=== PATIENT | male | born 1990 | race Caucasian/White ===

== ENCOUNTER 2021-04-01 09:06 | Emergency (ER) | payer OTHER ==
[2021-04-01] MEDS ORDERED: Kenalog-40 IM ONE (09:28)
--- NOTE | 2021-04-01 09:38 | ERPHSYRPT ---
- History of Present Illness Time Seen by Provider: 04/01/21 09:22 Source: patient Exam Limitations: no limitations Patient Subjective Stated Complaint: pt reports poison halle exposure after cleaning up weeds around his mailbox, states yesterday he noticed a rash and swelling to the forehead and left eye. pt denies any shortness of breath or difficulty breathing. Triage Nursing Assessment: pt is aox3, pupils perrl, afebrile, resps easy and non labored, cap refill < 3 seconds, radial pulses strong and equal, pt skin pink warm dry. pt with red raised rash to the mid forehead and left eye. some dried crusts noted as well. Physician History: 30 years old with history of type 2 diabetes mellitus well-controlled on Metformin presented in the ER with chief complaint of forehead poison halle rash since yesterday after he was cleaning around mailbox and came across different plants with poison halle probably 1. Patient reports initially started as small erythema with gradual blistering and minimal discharge. Complaining of burning and itching mild to moderate. Also having swelling of upper lid with minimal conjunctival injection. No difficulty with vision. No eye pain. No history of poison halle in the past. Up-to-date with immunizations. Timing/Duration: yesterday, constant, gradual onset, worse Quality: burning, itchy Severity: moderate Location: face Possible Causes: poison halle Associated Symptoms: flushing, rash, No difficulty breathing, No edema, No h guicho, No jaundice, No nasal congestion, No numbness, No pallor, No paresthesia, No sore throat, No swelling/mass/lumps Allergies/Adverse Reactions: poison halle extract Allergy (Verified 04/01/21 09:24) Hx Tetanus, Diphtheria Vaccination/Date Given: Yes Hx Influenza Vaccination/Date Given: No Hx Pneumococcal Vaccination/Date Given: No Immunizations Up to Date: Yes Travel Risk - International Travel Have you traveled outside of the country in past 3 weeks: No - Coronavirus Screening Are you exhibiting any of the following symptoms?: No Close contact with a COVID-19 positive Pt in past 14-21 Days: No - Vaccine Status Have you recieved a Covid-19 vaccination: No - Review of Systems Constitutional: No Symptoms Eyes: Eye Redness, Itchy, Tearing, No Eye Pain, No Photophobia Ears, Nose, & Throat: No Symptoms Respiratory: No Symptoms Cardiac: No Symptoms Abdominal/Gastrointestinal: No Symptoms Genitourinary Symptoms: No Symptoms Musculoskeletal: No Symptoms Skin: Pruritis, Rash, Skin Lesions Neurological: No Symptoms Psychological: No Symptoms Endocrine: No Symptoms - Past Medical History Pertinent Past Medical History: No - Past Surgical History Past Surgical History: Yes Musculoskeletal: Orthopedic Surgery Other Surgical History: L ANKLE. L KNEE - Social History Smoking Status: Never smoker Drug Use: none Patient Lives Alone: No - Nursing Vital Signs Nursing Vital Signs: Initial Vital Signs Temperature 98.0 F 04/01/21 09:13 Pulse Rate 80 04/01/21 09:13 Respiratory Rate 18 04/01/21 09:13 Blood Pressure 170/108 04/01/21 09:13 O2 Sat by Pulse Oximetry 95 04/01/21 09:13 Pain Scale Pain Intensity 2 - Physical Exam General Appearance: no apparent distress Eye Exam: PERRL/EOMI, other (Mild conjunctival injection left.) Ears, Nose, Throat Exam: normal ENT inspection, TMs normal, pharynx normal Neck Exam: normal inspection, supple, full range of motion Respiratory Exam: normal breath sounds, lungs clear Cardiovascular Exam: regular rate/rhythm, normal heart sounds Back Exam: normal inspection Neurologic Exam: alert, oriented x 3, cooperative Skin Exam: normal color, rash (Multiple confluent vesicles rash in the forehead especially on the left with some scabbing. Nontender to touch. Minimal serous discharge.) SpO2 Interpretation: normal SpO2: 96 O2 Delivery: Room Air Ordered Tests: Medication Summary Discontinued Medications Generic Name Dose Route Start Last Admin Trade Name Freq PRN Reason Stop Dose Admin Triamcinolone Acetonide 60 mg 04/01/21 09:28 Kenalog-40 IM 04/01/21 09:29 STAT ONE - Progress Progress: unchanged Progress Note: 04/01/21 09:37 Given Kenalog shot in here. We will continue with oral prednisone and topical steroids to go home. Outpatient follow-up recommended. Discussed signs symptoms of worsening needing return to ER which he he seems understanding. Recommended close monitoring of blood sugar while being on steroids. Counseled pt/family regarding: diagnosis, need for follow-up - Departure Departure Disposition: Home Clinical Impression: Allergic dermatitis due to poison halle Condition: Stable Critical Care Time: No Referrals: JENNI CHI [ACTIVE STAFF] - (Call tomorrow for reevaluation) Instructions: Poison Halle, Poison Logan, Poison [place] (DC) Additional Instructions: Follow-up with primary care for reevaluation. Return to ER for worsening rash, difficulty movements of eyeball, visual disturbance like double vision, blurry vision, increased sensitivity to light, discharge etc. Prescriptions: Hydrocortisone 2.5% 30 gm [Anusol-Hc 2.5% Cream 30 gm] 30 gm TP BID 5 Days #30 g Prednisone 20 mg [Deltasone 20 mg] 60 mg PO DAILY 5 Days #15 tablet
[2021-04-01] MEDS ORDERED: Kenalog-40 ONE (09:47)
[2021-04-01 10:48] VITALS: BP 166/102; PULSE 91; O2SAT 98
== END 2021-04-01 10:25 | disposition home or self-care (01) ==
LOC: ED 09:06
DX: L23.7 Allergic contact dermatitis due to plants, except food (principal)
CPT/HCPCS: 96372; 99283; J3301

== ENCOUNTER 2021-12-16 00:03 | Emergency (ER) | payer OTHER ==
[2021-12-16] MEDS ORDERED: TORAdol 30 mg Injection ONE (00:36)
[2021-12-16] MEDS: TORAdol 30 mg Injection IM ONE (00:39)
--- NOTE | 2021-12-16 00:56 | ERPHSYRPT ---
- History of Present Illness Time Seen by Provider: 12/16/21 00:22 Source: patient Exam Limitations: no limitations Patient Subjective Stated Complaint: pt states "I was climbing up a hill and fell on it weird." Triage Nursing Assessment: pt ambulated into the er; pt is axo x4; c/o left shoulder injury; pt states 3/10 pain to left shoulder; pt states that he heard a pop when he fell on it; good cap refill to LUE; limited ROM to LUE; no defority present to LUE; hypertension Physician History: 31 years old presented in the ER after he was climbing uphill and fell, twisted and hit left shoulder, heard a popping sound and since then having difficulty movements of the left shoulder. Moderate intensity sharp pain with movements and better with being still. No numbness tingling of left upper extremity and no pain radiation. No injury anywhere else. Occurred: just prior to arrival Method of Injury: fell, twisted Quality: sharpness Severity of Pain-Max: moderate Severity of Pain-Current: moderate Extremities Pain Location: shoulder: left Modifying Factors: Improves With: immobilization, rest. Worsens With: movement Associated Symptoms: none Allergies/Adverse Reactions: poison nikkie extract Allergy (Verified 12/16/21 00:10) Hx Tetanus, Diphtheria Vaccination/Date Given: Yes Hx Influenza Vaccination/Date Given: No Hx Pneumococcal Vaccination/Date Given: No Travel Risk - International Travel Have you traveled outside of the country in past 3 weeks: No - Coronavirus Screening Are you exhibiting any of the following symptoms?: No Close contact with a COVID-19 positive Pt in past 14-21 Days: No - Vaccine Status Have you recieved a Covid-19 vaccination: No - Review of Systems Constitutional: No Symptoms Eyes: No Symptoms Respiratory: No Symptoms Cardiac: No Symptoms Abdominal/Gastrointestinal: No Symptoms Musculoskeletal: Fall, Injury, Joint Pain Skin: No Symptoms Neurological: No Symptoms Psychological: No Symptoms Endocrine: No Symptoms Immunological/Allergic: No Symptoms - Past Medical History Pertinent Past Medical History: No Endocrine Medical History: Diabetes Type II - Past Surgical History Past Surgical History: Yes Musculoskeletal: Orthopedic Surgery Other Surgical History: L ANKLE. L KNEE - Social History Smoking Status: Never smoker Drug Use: none Patient Lives Alone: No - Nursing Vital Signs Nursing Vital Signs: Initial Vital Signs Temperature 97.7 F 12/16/21 00:10 Pulse Rate 86 05/08/22 00:10 Respiratory Rate 12 12/16/21 00:10 Blood Pressure 181/101 12/16/21 00:10 O2 Sat by Pulse Oximetry 98 12/16/21 00:10 Pain Scale Pain Intensity 3 - Physical Exam General Appearance: no apparent distress, alert Eyes, Ears, Nose, Throat Exam: normal ENT inspection Neck Exam: normal inspection, non-tender, supple Cardiovascular/Respiratory Exam: chest non-tender, normal breath sounds, regular rate/rhythm, heart sounds normal Back Exam: normal inspection, normal range of motion Shoulder Exam: normal inspection, limited ROM (Left shoulder in all direction), pain, soft tissue tenderness (Left shoulder) Elbow/Forearm Exam: normal inspection, non-tender, no evidence of injury, normal ROM Wrist Exam: normal inspection, non-tender, no evidence of injury Hand Exam: normal inspection, non-tender, no evidence of injury Neuro/Tendon Exam: normal sensation, normal motor functions, normal tendon functions Mental Status Exam: alert, oriented x 3, cooperative Skin Exam: normal color SpO2 Interpretation: normal SpO2: 98 O2 Delivery: Room Air Ordered Tests: Active Orders 24 hr Category Date Time Status SHOULDER Stat Exams 12/16/21 00:30 Taken Medication Summary Discontinued Medications Generic Name Dose Route Start Last Admin Trade Name Manuel PRN Reason Stop Dose Admin Ketorolac Tromethamine 30 mg 12/16/21 00:34 12/16/21 00:39 Ketorolac Tromethamine 30 Mg/Ml Inj IM 12/16/21 00:35 30 mg STAT ONE Administration Ketorolac Tromethamine Confirm 12/16/21 00:36 Ketorolac Tromethamine 30 Mg/Ml Inj Administered 12/16/21 00:37 Dose 30 mg .ROUTE .STK-MED ONE - Progress Progress: improved Progress Note: 12/16/21 00:57 Given Toradol for symptomatic relief. X-rays negative for any acute fracture dislocation, reviewed by me, official report is pending. Probably shoulder sprain. Given sling, NSAIDs and outpatient orthopedic follow-up. 12/16/21 00:58 Counseled pt/family regarding: diagnosis, need for follow-up, rad results - Departure Departure Disposition: Home Clinical Impression: Sprain of shoulder, left Condition: Stable Critical Care Time: No Referrals: DOCTOR,NO FAMILY [Primary Care Provider] - Follow up/PCP as directed ORTHO - DAWSON IRIZARRY NP [NON-STAFF PHY W/O PRIVILEGES] - Follow up/PCP as directed (Tomorrow for reevaluation) Instructions: Shoulder Sprain (DC) Additional Instructions: Take Tylenol/ibuprofen as needed. Avoid exertional activities. Follow-up with Ortho for reevaluation. Return to ER for worsening pain, difficulty movements etc. Prescriptions: Ibuprofen 600 mg PO Q6HPRN PRN 10 Days #20 tablet PRN Reason: Pain
[2021-12-16 01:12] VITALS: BP 172/98; PULSE 80; O2SAT 97
--- NOTE | 2021-12-16 07:35 | XRAY ---
Indication: Pain following fall. Comparison: None 3 view left shoulder demonstrates minimal AC degenerative arthropathy. No other bony, articular, or soft tissue abnormalities.
== END 2021-12-16 01:12 | disposition home or self-care (01) ==
LOC: ED 00:03
DX: S43.402A Unspecified sprain of left shoulder joint, initial encounter (principal); W18.30XA Fall on same level, unspecified, initial encounter; Y93.01 Activity, walking, marching and hiking; M25.512 Pain in left shoulder; E11.9 Type 2 diabetes mellitus without complications
CPT/HCPCS: 73030; 96372; 99284; J1885